=== PATIENT | male | born 1960 | race Caucasian/White ===

== ENCOUNTER 2017-10-20 18:43 | Day surgery (SDC) | payer BC ==
[~2017-10-20] VITALS: Ht 167.6 cm; Wt 142.4 kg
[2017-10-20 18:28] VITALS: BP_SYST 126
[2017-10-20] MEDS: LR 1,000 ML IV SCH (18:42)
[~2017-10-20 18:43] MED LIST: ACETAMINOPHEN 325 MG TABLET PO PRN; BUPIVACAINE /PF 0.25% 30 ML VIAL INJ ONE; CEFAZOLIN 1 GM IVPB PREMIX 50 ML IV ONE; CEFAZOLIN 2 GM IVPB PREMIX 50 ML IV ONE; EPINEPHrine 1 MG/ML AMP ONE; LR 1,000 ML IV SCH; LR 1,000 ML IV.SOLN IV ONE; MIDAZOLAM HCL 5 MG/ML VIAL (VERSED) IV ONE; MORPHINE 4 MG/ML INJ. SYRINGE IVP PRN; ONDANSETRON HCL 4 MG/2 ML VIAL IVP PRN; ONDANSETRON HCL 4 MG/2 ML VIAL ONE; POLYMYXIN 500,000/BACIT.10,000 UNITS in NS IRR 1 L IR ONE; PROPOFOL 200MG/ 20ML VIAL (DIPRIVAN) IV ONE; ROCURONIUM BROMIDE 10 MG/ML (ZEMURON) ONE; SENNOSIDES 8.6 MG TABLET PO PRN; SEVOFLURANE 15 MIN GAS INH ONE; SUCCINYLCHOLINE CHLORIDE 20 MG/ML(QUELICIN) ONE; fentaNYL CITRATE 250 MCG/5 ML AMP ONE
[2017-10-20] MEDS: CEFAZOLIN 2 GM IVPB PREMIX 100 ML IV SCH (19:31)
[2017-10-20] MEDS ORDERED: DOCUSATE SODIUM 100 MG CAPSULE PO SCH (20:30)
[2017-10-20] MEDS: DOCUSATE SODIUM 100 MG CAPSULE PO SCH (20:45)
[2017-10-20 21:52] VITALS: BP_SYST 126
[2017-10-20] MEDS: HYDROcodone/ACETAMIN 5-325 MG TAB (NORCO/ VICODIN) PO PRN (22:20)
[2017-10-20] MEDS: INSULIN REGULAR, HUMAN 100 UNITS/ML, 10 ML VIAL (novoLIN R) SUBCUT PRN (22:36)
[2017-10-21 00:15] VITALS: BP_SYST 144
[2017-10-21] MEDS: CEFAZOLIN 2 GM IVPB PREMIX 100 ML IV SCH (03:35)
[2017-10-21] MEDS: LR 1,000 ML IV SCH ×2 (05:25→08:59)
[2017-10-21] MEDS: HYDROcodone/ACETAMIN 5-325 MG TAB (NORCO/ VICODIN) PO PRN (06:47)
[2017-10-21 08:00] VITALS: BP_SYST 113
[2017-10-21] MEDS ORDERED: LOSARTAN POTASSIUM 25 MG TABLET PO SCH (09:00)
[2017-10-21] MEDS: DOCUSATE SODIUM 100 MG CAPSULE PO SCH (09:37)
[2017-10-21 12:50] VITALS: BP_SYST 129
[2017-10-21] MEDS: INSULIN REGULAR, HUMAN 100 UNITS/ML, 10 ML VIAL (novoLIN R) SUBCUT PRN (13:01)
[2017-10-21 13:40] VITALS: BP_SYST 115
== END 2017-10-21 14:45 | disposition home or self-care (01) ==
LOC: STU 18:43 → SMU 18:43 → SDS 18:43
PROVIDERS: ATTEND Surgery
DX: K43.0 Incisional hernia with obstruction, without gangrene (principal); Z98.890 Other specified postprocedural states; Z79.899 Other long term (current) drug therapy; E11.9 Type 2 diabetes mellitus without complications; E66.01 Morbid (severe) obesity due to excess calories; K21.9 Gastro-esophageal reflux disease without esophagitis; M19.90 Unspecified osteoarthritis, unspecified site; G43.909 Migraine, unspecified, not intractable, without status migrainosus; I20.9 Angina pectoris, unspecified; E55.9 Vitamin D deficiency, unspecified; Z68.43 Body mass index [BMI] 50.0-59.9, adult
CPT/HCPCS: 49655; 82948; 82962; 88302; 94010; 94660 ×2; 94760; C1727; C1781; J0171; J0330; J0690; J1815; J2250; J2405; J2704; J3010; J3490; J7120 ×2